=== PATIENT | female | born 1995 ===

== ENCOUNTER 2017-05-05 21:43 | Emergency (ER) | payer OTHER ==
[2017-05-05 21:45] VITALS: BMI 37.2
== END 2017-05-05 22:44 | disposition left against medical advice (07) ==
LOC: ED 21:43
DX: Z02.89 Encounter for other administrative examinations (principal); O26.90 Pregnancy related conditions, unspecified, unspecified trimester

== ENCOUNTER 2017-11-23 19:36 | Inpatient (IN) | payer MEDICAID, OTHER ==
[2017-11-23 19:56] VITALS: BMI 34.3
[2017-11-23] MEDS ORDERED: Morphine 4 mg/ml ISec IVP STA (20:53)
--- NOTE | 2017-11-23 20:56 | ED PDOC ---
Arrival/HPI - General Chief Complaint: Lower Extremity Problem/Injury Time Seen by Provider: 11/23/17 19:53 Historian: Patient - History of Present Illness Narrative History of Present Illness (Text): 11/23/17 20:54 22yo female with no pmhx who was bib EMS for right ankle pain s/p trauma this evening. States she missed 2stairs and fell, while carrying her child injuring her ankle. States unable to bear weight. Denies hitting her head, LOC, focal weakness, any other complaint. Past Medical History - Provider Review Nursing Documentation Reviewed: Yes - Past History Past History: No Previous - Infectious Disease Hx of Infectious Diseases: None - Tetanus Immunization Tetanus Immunization: Unknown - Past Medical History Past Medical History: No Previous - Psychiatric Hx Depression: No Hx Substance Use: No - Past Surgical History Past Surgical History: No Previous - Anesthesia Hx Anesthesia: No Hx Anesthesia Reactions: No Hx Malignant Hyperthermia: No - Suicidal Assessment Feels Threatened In Home Enviroment: No Family/Social History - Physician Review Nursing Documentation Reviewed: Yes Family/Social History: Unknown Family HX Smoking Status: Former Smoker Hx Alcohol Use: Yes Hx Substance Use: No Hx Substance Use Treatment: No Allergies/Home Meds Allergies/Adverse Reactions: Allergies No Known Allergies Allergy (Verified 07/14/17 12:28) Home Medications: Home Meds Medication Instructions Recorded Confirmed Vit No.126/Iron/Folic 1 tab PO DAILY 03/23/16 07/24/17 [Classic Tablet] Review of Systems - Physician Review All systems were reviewed & negative as marked: Yes - Review of Systems Constitutional: Normal Eyes: Normal ENT: Normal Respiratory: Normal Cardiovascular: Normal Gastrointestinal: Normal Genitourinary Female: Normal Musculoskeletal: Arthralgias (Right ankle) Skin: Normal Neurological: Normal Endocrine: Normal Hemo/Lymphatic: Normal Psychiatric: Normal Physical Exam Vital Signs Reviewed: Yes Vital Signs Temp Pulse Resp BP Pulse Ox 11/23/17 21:51 98.3 F 85 18 129/72 99 11/23/17 19:37 98.5 F 92 H 18 100 Temperature: Afebrile Blood Pressure: Normal Pulse: Regular Respiratory Rate: Normal Appearance: Positive for: Well-Appearing, Non-Toxic, Comfortable Pain Distress: None Mental Status: Positive for: Alert and Oriented X 3 - Systems Exam Head: Present: Atraumatic, Normocephalic Pupils: Present: PERRL Extroacular Muscles: Present: EOMI Conjunctiva: Present: Normal Mouth: Present: Moist Mucous Membranes Neck: Present: Normal Range of Motion Respiratory/Chest: Present: Clear to Auscultation, Good Air Exchange. No: Respiratory Distress, Accessory Muscle Use Cardiovascular: Present: Regular Rate and Rhythm, Normal S1, S2. No: Murmurs Abdomen: No: Tenderness, Distention, Peritoneal Signs Back: Present: Normal Inspection Upper Extremity: Present: Normal Inspection. No: Cyanosis, Edema Lower Extremity: Present: NORMAL PULSES, Tenderness (diffuse right ankle), Swelling (Right ankle worse on the lateral aspect), Deformity, Neurovascularly Intact. No: Edema, Normal ROM (Limited secondary to pain) Neurological: Present: GCS=15, CN II-XII Intact, Speech Normal Skin: Present: Warm, Dry, Normal Color. No: Rashes Psychiatric: Present: Alert, Oriented x 3, Normal Insight, Normal Concentration Medical Decision Making ED Course and Treatment: 11/24/17 00:56 Right ankle Bones/joints: There is a fracture of the distal fibula which is partially displaced. Fracture is also seen involving the distal tibia extending to the tibial plafond posteriorly and medially. No dislocation. Soft tissues: Marked soft tissue edema of the lateral ankle. IMPRESSION: Trimalleolar fracture. Marked edema of the lateral ankle. PT's pain was controlled in ED. Posterior and sugar tong splint was placed to mobilized fracture and ankle was kept elevated. She remain NVI. Case was MAYCO Louie and he states he will take pt to ED tomorrow. He requested ankle CT and it was ordered. Labs was ordered and wnl. Case was MAYCO Burger and pt was admitted to the Hospitalist. All result and plan was DW the pt and she agreed. EKG NSR @ 92bpm CXR NAD Right ankle As seen are oblique coronal, intra-articular fractures of the right distal tibia and fibula. At the tibial plafond, there is up to 3.5 mm of depression of the posterior malleolus fragment , with a gap at the articular surface measuring up to 3 mm in AP dimension. There is a 9 mm curvilinear intra-articular ossific fragment. There is an additional transverse fracture through the base of the medial malleolus. The distal fibular fracture is fragment anteroinferiorly with mild displacement. No dislocation. The talus is intact. No visualized hindfoot or midfoot fracture. No aggressive osseous lesion. IMPRESSION: This report is intended only for the use of the referring physician, and only in accordance with law, If you received this in error, call [phone] Page 2 of 2 Acute intra-articular fractures of the right distal tibia and fibula as described, with disruption of the tibial plafond. 11/24/17 01:03 - Lab Interpretations Lab Results: 11/23/17 20:45 11/23/17 20:45 Lab Results 11/23/17 21:00: Blood Type B POSITIVE, Antibody Screen Negative, BBK History Checked Patient has bt 11/23/17 20:45: Sodium 143, Potassium 3.9, Chloride 103, Carbon Dioxide 24, Anion Gap 19, BUN 16, Creatinine 0.9, Est GFR ( Amer) > 60, Est GFR (Non- Af Amer) > 60, Random Glucose 98, Calcium 9.0, Total Bilirubin 0.2, AST 35, ALT 49, Alkaline Phosphatase 86, Total Protein 8.0, Albumin 4.7, Globulin 3.4, Albumin/Globulin Ratio 1.4 11/23/17 20:45: PT 11.6, INR 1.02, APTT 29.6 11/23/17 20:45: WBC 11.3 H, RBC 4.89, Hgb 12.2, Hct 36.8, MCV 75.3 L, MCH 24.9 L , MCHC 33.2, RDW 14.5, Plt Count 357, MPV 9.8, Gran % 76.7 H, Lymph % (Auto) 17.7 L, [place] % (Auto) 4.4, Eos % (Auto) 1.0 L, Baso % (Auto) 0.2, Gran # 8.69 H , Lymph # (Auto) 2.0, [place] # (Auto) 0.5, Eos # (Auto) 0.1, Baso # (Auto) 0.02 - RAD Interpretation Radiology Orders: 11/23/17 19:56 ANKLE RIGHT 3 VIEWS ROUTINE [RAD] Stat 11/23/17 21:06 CHEST PORTABLE [RAD] Stat - Medication Orders Current Medication Orders: Acetaminophen (Tylenol 325mg Tab) 650 mg PO Q6H PRN PRN Reason: Fever >100.4 F Docusate Sodium (Colace) 100 mg PO BID JANICE Sodium Chloride (Sodium Chloride 0.9%) 1,000 mls @ 125 mls/hr IV .Q8H JANICE Last Admin: 11/23/17 22:32 Dose: 125 mls/hr eMAR Start Stop Document 11/23/17 22:32 MJ (Rec: 11/23/17 22:32 [id number] Intravenous Solution Start Date 11/23/17 Start Time 22:32 Ketorolac Tromethamine (Toradol) 15 mg IVP Q6H PRN PRN Reason: Pain, Mild (1-3) Morphine Sulfate (Morphine) 4 mg IVP Q4H PRN PRN Reason: Pain, severe (8-10) Morphine Sulfate (Morphine) 2 mg IVP Q4H PRN PRN Reason: Pain, moderate (4-7) Last Admin: 11/23/17 22:31 Dose: 2 mg MAR Pain Assessment Document 11/23/17 22:31 MJ (Rec: 11/23/17 22:32 [id number] Pain Reassessment Is this a pain reassessment? No Sleep Is patient sleeping during reassessment? No Presence of Pain Presence of Pain Yes Pain Scale Used Pain Scale Used Numeric Location Left, Right or Bilateral Right Pain Location Body Site Ankle Description Description Constant Intensity of Pain at present 6 Pain Behavior Moaning Alleviating Factors/Management Medication Techniques IVP Administration Document 11/23/17 22:31 MJ (Rec: 11/23/17 22:32 [id number] Charges for Administration # of IVP Administrations 1 Discontinued Medications Ketorolac Tromethamine (Toradol) 30 mg IM STAT STA Stop: 11/23/17 20:02 Last Admin: 11/23/17 20:11 Dose: 30 mg MAR Pain Assessment Document 11/23/17 20:11 EQ (Rec: 11/23/17 20:11 EQ [id number]) Pain Reassessment Is this a pain reassessment? No Sleep Is patient sleeping during reassessment? No Presence of Pain Presence of Pain Yes IM Administration Charges Document 11/23/17 20:11 EQ (Rec: 11/23/17 20:11 EQ [id number]) Charges for Administration # of IM Administrations 1 Morphine Sulfate (Morphine) 4 mg IVP STAT STA Stop: 11/23/17 20:54 Last Admin: 11/23/17 21:02 Dose: 4 mg MAR Pain Assessment Document 11/23/17 21:02 EQ (Rec: 11/23/17 21:02 EQ [facility]) Pain Reassessment Is this a pain reassessment? No Sleep Is patient sleeping during reassessment? No Presence of Pain Presence of Pain Yes Pain Scale Used Pain Scale Used Numeric Description Effects of Pain 7 IVP Administration Document 11/23/17 21:02 EQ (Rec: 11/23/17 21:02 EQ [facility]) Charges for Administration # of IVP Administrations 1 Disposition/Present on Arrival - Present on Arrival Any Indicators Present on Arrival: No History of DVT/PE: No History of Uncontrolled Diabetes: No Urinary Catheter: No History of Decub. Ulcer: No History Surgical Site Infection Following: None - Disposition Have Diagnosis and Disposition been Completed?: Yes Diagnosis: Trimalleolar fracture Disposition: HOSPITALIZED Disposition Time: 21:30 Patient Plan: Admission Condition: STABLE
[2017-11-23 21:02] LABS: ALB/GLOB RATIO 1.4 (1.1-1.8); ALBUMIN 4.7 g/dL (3.0-4.8); ALT/SGPT 49 U/L (7-56); AST/SGOT 35 U/L (14-36); BLOOD UREA NITROGEN 16 mg/dL (7-21); GFR AFRICAN-AMERICAN > 60; GFR NON-AFRICAN AMERICAN > 60
[2017-11-23 21:10] LABS: BASO # 0.02 K/mm3 (0.0-2.0); BASO % 0.2 % (0.0-3.0); EOS # 0.1 (0.0-0.7); GRAN # 8.69 (1.4-6.5); GRAN % 76.7 % (50.0-68.0); HEMOGLOBIN 12.2 g/dL (12.0-16.0); LYMPH % 17.7 % (22.0-35.0); MEAN CELL VOLUME 75.3 fl (80.0-105.0); MEAN CORPUSCULAR HEMOGLOBIN 24.9 pg (25.0-35.0); MEAN CORPUSCULAR HGB CONC 33.2 g/dl (31.0-37.0); MEAN PLATELET VOLUME 9.8 fl (7.0-11.0); MONO # 0.5 (0.1-0.6); MONO % 4.4 % (1.0-6.0); RBC 4.89 10^6/uL (3.5-6.1); RED CELL DISTRIBUTION WIDTH 14.5 % (11.5-14.5); WHITE BLOOD COUNT 11.3 10^3/ul (4.5-11.0)
[2017-11-23 21:11] LABS: INR 1.02; PROTHROMBIN TIME 11.6 SECONDS (9.4-12.5)
[2017-11-23 21:14] LABS: PARTIAL THROMBOPLASTIN TIME 29.6 Seconds (25.1-36.5)
[2017-11-23] MEDS: Morphine 2 mg/ml ISec IVP PRN (22:31)
[2017-11-23] MEDS: Sodium Chloride 0.9% 1,000 ML IV SCH (22:32)
--- NOTE | 2017-11-24 00:30 | CP.PCM.HP ---
History of Present Illness - History of Present Illness History of Present Illness: HISTORY & PHYSICAL NOTE FOR HOSPITALIST TEAM Ismael Martinez PGY1 CC: R ankle pain s/p mechanical fall. HPI: Pt is a 22 y/o F with no significant pmhx presented to ED with complaints of severe R ankle pain after falling at home. Pt was holding her baby while walking down stairs at home when she missed a step and injured her ankle. She does not remember details as to which way the ankle had turned. She landed on her stomach and remained on the floor until EMS. She denies LOC during the event, and reports her child was unharmed. She reports her pain was 10/10 immediately after she fell, but decreased to 4/10 after analgesic administration in ER. She denies numbness, tingling, or loss of sensation on the extremity. She is able to move her R ankle, although its very painful. She reports cervical cerclage placement x 3 for cervical incompetence, and reports good recovery from anesthesia. Denies any history of bleeding disorders. Friend present with pt denies pt snores when sleeping. Pt denies fevers, chills, headaches, dizziness, nausea, vomiting, constipation diarrhea, numbness tingling , dysuria. PMhx: denies Surghx: Cervical cerclage- cervical incompetence Allergies: NKDA Socialhx: Former smoker, 2pack/week x 1 year. Denies drugs/alcohol Famhx: Denies Meds: Denies Present on Admission - Present on Admission Any Indicators Present on Admission: No Review of Systems - Review of Systems All systems: reviewed and no additional remarkable complaints except (as per HPI , otherwise negative) Past Patient History - Infectious Disease Hx of Infectious Diseases: None - Tetanus Immunizations Tetanus Immunization: Unknown - Past Social History Smoking Status: Light Smoker < 10 Cigarettes Daily - CARDIAC Hx Cardiac Disorders: No - PULMONARY Hx Respiratory Disorders: No - NEUROLOGICAL Hx Neurological Disorder: No - HEENT Hx HEENT Problems: No - RENAL Hx Chronic Kidney Disease: No - ENDOCRINE/METABOLIC Hx Endocrine Disorders: No - HEMATOLOGICAL/ONCOLOGICAL Hx Blood Disorders: No - INTEGUMENTARY Hx Dermatological Problems: No - MUSCULOSKELETAL/RHEUMATOLOGICAL Hx Falls: No - GASTROINTESTINAL Hx Gastrointestinal Disorders: No - GENITOURINARY/GYNECOLOGICAL Hx Genitourinary Disorders: No - PSYCHIATRIC Hx Depression: No Hx Substance Use: No - SURGICAL HISTORY Hx Surgeries: No - ANESTHESIA Hx Anesthesia: No Hx Anesthesia Reactions: No Hx Malignant Hyperthermia: No Meds Allergies/Adverse Reactions: Allergies Allergy/AdvReac Type Severity Reaction Status Date / Time No Known Allergies Allergy Verified 07/14/17 12:28 Physical Exam - Constitutional Appears: Well, Non-toxic, No Acute Distress - Head Exam Head Exam: NORMAL INSPECTION - Eye Exam Eye Exam: EOMI, Normal appearance - ENT Exam ENT Exam: Mucous Membranes Moist, Normal Exam - Respiratory Exam Respiratory Exam: Clear to Auscultation Bilateral, NORMAL BREATHING PATTERN - Cardiovascular Exam Cardiovascular Exam: Tachycardia, REGULAR RHYTHM - GI/Abdominal Exam GI & Abdominal Exam: Normal Bowel Sounds, Soft. absent: Tenderness - Extremities Exam Extremities exam: Positive for: normal capillary refill Additional comments: R ankle dressing in place Sensation intact along distal phalanges Pt can move phalanges Normal capillary refill - Neurological Exam Neurological exam: Alert, CN II-XII Intact - Psychiatric Exam Psychiatric exam: Normal Affect, Normal Mood - Skin Skin Exam: Dry, Intact, Warm Results - Vital Signs Recent Vital Signs: Last Vital Signs Temp 98.3 F 11/23/17 22:54 Pulse 92 H 11/23/17 22:54 Resp 20 11/23/17 22:54 BP 128/81 11/23/17 22:54 Pulse Ox 98 11/23/17 22:53 - Labs Result Diagrams: 11/23/17 20:45 11/23/17 20:45 Assessment & Plan - Assessment and Plan (Free Text) Assessment: 22 y/o F w/ no significant pmhx admitted for trimalleolar fracture s/p mechanical fall. Pt admitted for pre-op evaluation. Plan: R trimalleolar fracture - X-Ray R ankle: Trimalleolar fracture. Marked edema of the lateral ankle - Orthopedic surgery consult: Mastromonaco. Scheduled for OR today - DVT prophylaxis held, start 4 hours after surgery - Previous hx of cervical cerclage surgeries under anesthesia. Reported normal recovery post procedures - morphine 4mg IVP q4h prn for severe pain. morphine 2mg q4h IVP prn for moderate pain. Toradol 15mg IVP q6h prn. Leukocytosis - pt afebrile. Doesnt meet SIRS criteria - likely due to stress demargination Diet/DVT ppx/GI ppx: NPO past midnight/hold/protonix Case discussed with and reviewed by attending physician, Dr. Burger - Date & Time Date: 11/24/17 Time: 01:00
[2017-11-24] MEDS: Morphine 4 mg/ml ISec IVP PRN ×2 (04:56→23:51)
[2017-11-24] MEDS: Sodium Chloride 0.9% 1,000 ML IV SCH ×3 (06:52→23:52)
[2017-11-24] MEDS: Morphine 2 mg/ml ISec IVP PRN ×2 (07:28→16:32)
[2017-11-24 07:58] LABS: BASO # 0.02 K/mm3 (0.0-2.0); BASO % 0.2 % (0.0-3.0); EOS # 0.1 (0.0-0.7); EOS % 1.2 % (1.5-5.0); GRAN # 6.02 (1.4-6.5); GRAN % 66.1 % (50.0-68.0); LYMPH # 2.3 (1.2-3.4); LYMPH % 25.7 % (22.0-35.0); MEAN CELL VOLUME 75.6 fl (80.0-105.0); MEAN CORPUSCULAR HEMOGLOBIN 24.6 pg (25.0-35.0); MEAN CORPUSCULAR HGB CONC 32.6 g/dl (31.0-37.0); MEAN PLATELET VOLUME 9.7 fl (7.0-11.0); MONO # 0.6 (0.1-0.6); MONO % 6.8 % (1.0-6.0); RBC 4.14 10^6/uL (3.5-6.1); RED CELL DISTRIBUTION WIDTH 14.4 % (11.5-14.5); WHITE BLOOD COUNT 9.1 10^3/ul (4.5-11.0)
[2017-11-24 08:01] LABS: ALB/GLOB RATIO 1.3 (1.1-1.8); ALBUMIN 3.6 g/dL (3.0-4.8); ALT/SGPT 36 U/L (7-56); AST/SGOT 26 U/L (14-36); BLOOD UREA NITROGEN 14 mg/dL (7-21); CALCIUM 8.4 mg/dL (8.4-10.5); GFR AFRICAN-AMERICAN > 60; GFR NON-AFRICAN AMERICAN > 60
--- NOTE | 2017-11-24 08:04 | RAD ---
Date of service: 11/23/2017 HISTORY: admission COMPARISON: No prior. FINDINGS: LUNGS: No active pulmonary disease. PLEURA: No significant pleural effusion identified, no pneumothorax apparent. CARDIOVASCULAR: Normal. OSSEOUS STRUCTURES: No significant abnormalities. VISUALIZED UPPER ABDOMEN: Normal. OTHER FINDINGS: None. IMPRESSION: No active disease.
[2017-11-24 08:06] LABS: HEMOGLOBIN 10.2 g/dL (12.0-16.0)
--- NOTE | 2017-11-24 08:12 | RAD ---
Date of service: 11/23/2017 PROCEDURE: Right Ankle Radiographs. HISTORY: ankle pain COMPARISON: None FINDINGS: BONES: Displaced trimalleolar fracture. Oblique fracture of the distal fibula. Displaced transverse fracture of the medial malleolus. Minimally displaced vertical fracture of the posterior malleolus JOINTS: Normal. No osteoarthritis. Ankle mortise maintained. Talar dome intact SOFT TISSUES: Normal. OTHER FINDINGS: None. IMPRESSION: Displaced trimalleolar fracture. Oblique fracture of the distal fibula. Displaced transverse fracture of the medial malleolus. Minimally displaced vertical fracture of the posterior malleolus
[2017-11-24 08:19] LABS: URINE BILIRUBIN NEGATIVE (NEGATIVE); URINE BLOOD NEGATIVE (NEGATIVE); URINE GLUCOSE (UA) NEGATIVE (NEGATIVE); URINE LEUKOCYTE ESTERASE MODERATE Leu/uL (NEGATIVE); URINE PROTEIN NEGATIVE mg/dL (<30 mg/dL); URINE UROBILINOGEN 0.2 E.U./dL (<1 E.U./dL)
[2017-11-24 08:21] LABS: URINE APPEARANCE SL CLOUDY (CLEAR); URINE COLOR YELLOW (YELLOW)
[2017-11-24 08:32] LABS: URINE BACTERIA SMALL (NEG); URINE RBC NEGATIVE /hpf (0-2); URINE WBC 25 - 30 /hpf (0-6)
--- NOTE | 2017-11-24 09:06 | CARD ---
APPROVED REPORT Date of service: 11/23/2017 EKG Measurement Heart [id number] <Conclusion> Normal sinus rhythm Normal ECG
--- NOTE | 2017-11-24 09:19 | CT ---
Date of service: 11/23/2017 PROCEDURE: CT of the right ankle HISTORY: ankle fracture COMPARISON: TECHNIQUE: Radiation dose: Total exam DLP = 361 mGy-cm. This CT exam was performed using one or more of the following dose reduction techniques: Automated exposure control, adjustment of the mA and/or kV according to patient size, and/or use of iterative reconstruction technique. FINDINGS: There is a trimalleolar fracture. Vertical fractures can be seen in the coronal plane extending through the posterior 3rd of the tibia as well as the fibula. There is a displaced transverse fracture of the medial malleolus. There is minimal lateral subluxation of the talus relative to the tibia. The talar dome is intact. There is a small curvilinear bony fragment in the joint space measuring 9 mm in length and 1 mm in diameter. The report concurs with the preliminary [facility] report IMPRESSION: Trimalleolar fracture
[2017-11-24] MEDS ORDERED: Vancomycin 1 g Inj ONE ×2 (09:49→13:04)
[2017-11-24] MEDS ORDERED: Bupivacaine 0.5% Inj(30mL) ONE ×2 (09:49→13:41)
[2017-11-24] MEDS ORDERED: Propofol 10 mg/ml Inj (20 ML) ONE (09:52)
[2017-11-24] MEDS ORDERED: Midazolam 2 MG/2 ML VIAL ONE (09:52)
[2017-11-24] MEDS ORDERED: Rocuronium 10 mg/ml (5 ml) ONE (09:54)
--- NOTE | 2017-11-24 13:30 | RAD ---
Date of service: 11/24/2017 PROCEDURE: Fluoroscopy up to 1 hour HISTORY: ORIF RT ANKLE COMPARISON: TECHNIQUE: 81.3 seconds of fluoro time were used. 2.59 mGy cumulative dose. 3 images were obtained FINDINGS: There has been internal fixation of the posterior malleolar and lateral malleolar fracture. There is normal alignment of the medial malleolar fracture. There is no screw through this fracture. IMPRESSION: As above
[2017-11-24] MEDS ORDERED: HYDROmorphone 0.5 mg/0.5 ml ISec IVP PRN (14:15)
--- NOTE | 2017-11-24 14:21 | PCM.ANESB2 ---
Popliteal Nerve Block - Popliteal Nerve Block Date of Procedure: 11/24/17 Anesthesiologist: Leo Pre-Procedure Diagnosis: Ankle ORIF Post-Procedure Diagnosis: same Procedure Performed: Popliteal Nerve Block Right - Procedure Popliteal Nerve Block: This procedure was explained to the patient that it is for post-operative pain management. Consent was obtained after a thorough discussion with the patient regarding the benefits and possible complications of local anesthetic block of the sciatic nerve at the popliteal level. The patient was brought to the operating room and standard monitors are applied. Time-out was held with the circulating nurse to confirm the correct surgery and the appropriate block. After applying oxygen by nasal cannula and administering IV Sedation, patient's operative leg was gently raised and supported and the groove in between the biceps femoris and vastus lateralis muscles was carefully palpated. The skin approximately 8cm above the popliteal crease was then marked. The ultrasound transducer was then applied to the posterior thigh approximately 8cm above the popliteal crease in the transverse plane and the sciatic nerve before its division was visualized lateral to the popliteal artery and in between the bicep femoris and semimembranosus/semitendinosus muscles. After identification, the lateral portion of the thigh was prepped with Betadine solution three times and Lidocaine 1% was injected subcutaneously for topical anesthesia. At this point, a # 21 gauge Stimuplex insulated 4 inch needle was inserted into pre-marked area and advanced in a perpendicular direction. The needle was inserted above the ultrasound transducer in-plane towards the sciatic nerve in a [id number] direction. Needle advancement was performed carefully under direct ultrasound visualization. Nerve stimulator was used and dorsiflexion of the __right___ foot was elicited at a current of ___0.4__ MA. After repeated negative aspiration, ___5__cc of __0.25___ % ____Bupivacaine was injected and this was flowed with __15____ cc of __0.25____% __Bupivacaine ____. Under ultrasound guidance the local anesthetics were observed surrounding sciatic nerve . The needle was removed intact and sterile dressing was applied. The patient tolerated the popliteal nerve block well with stable vital signs and was subsequently prepared for the surgery.
[2017-11-24] MEDS ORDERED: HYDROmorphone 0.5 mg/0.5 ml ISec ONE (14:28)
[2017-11-24] MEDS ORDERED: HYDROmorphone 0.5 mg/0.5 ml ISec IVP ONE (14:30)
--- NOTE | 2017-11-24 15:32 | RAD ---
Date of service: 11/24/2017 PROCEDURE: Right Ankle Radiographs. HISTORY: post op rt ankle fx COMPARISON: Pre reduction films 11/23/2017 FINDINGS: BONES: There has been internal fixation of the lateral and posterior malleolar fracture. There is anatomic alignment of the medial malleolar fracture without surgical hardware. The foot is in a cast JOINTS: Normal. No osteoarthritis. Ankle mortise maintained. Talar dome intact SOFT TISSUES: Normal. OTHER FINDINGS: None. IMPRESSION: There has been internal fixation of the lateral and posterior malleolar fracture. There is anatomic alignment of the medial malleolar fracture without surgical hardware. The foot is in a cast
[2017-11-24 16:24] LABS: BASO # 0.02 K/mm3 (0.0-2.0); BASO % 0.2 % (0.0-3.0); EOS % 0.2 % (1.5-5.0); GRAN # 10.51 (1.4-6.5); GRAN % 85.1 % (50.0-68.0); HEMOGLOBIN 10.3 g/dL (12.0-16.0); LYMPH % 7.9 % (22.0-35.0); MEAN CELL VOLUME 75.5 fl (80.0-105.0); MEAN CORPUSCULAR HEMOGLOBIN 24.2 pg (25.0-35.0); MEAN CORPUSCULAR HGB CONC 32.1 g/dl (31.0-37.0); MEAN PLATELET VOLUME 8.7 fl (7.0-11.0); MONO # 0.8 (0.1-0.6); MONO % 6.6 % (1.0-6.0); RBC 4.25 10^6/uL (3.5-6.1); RED CELL DISTRIBUTION WIDTH 14.4 % (11.5-14.5); WHITE BLOOD COUNT 12.3 10^3/ul (4.5-11.0)
[2017-11-24] MEDS ORDERED: ceFAZolin IV 2 gm in Dextrose 2 GM/50 ML BAG IVPB ONE (18:00)
[2017-11-25 09:12] LABS: BASO # 0.01 K/mm3 (0.0-2.0); BASO % 0.1 % (0.0-3.0); EOS % 0.3 % (1.5-5.0); GRAN # 7.3 (1.4-6.5); GRAN % 75.7 % (50.0-68.0); HEMOGLOBIN 9.4 g/dL (12.0-16.0); LYMPH # 1.3 (1.2-3.4); LYMPH % 13.3 % (22.0-35.0); MEAN CELL VOLUME 75.8 fl (80.0-105.0); MEAN CORPUSCULAR HEMOGLOBIN 23.9 pg (25.0-35.0); MEAN CORPUSCULAR HGB CONC 31.5 g/dl (31.0-37.0); MEAN PLATELET VOLUME 9.7 fl (7.0-11.0); MONO % 10.6 % (1.0-6.0); RBC 3.93 10^6/uL (3.5-6.1); RED CELL DISTRIBUTION WIDTH 14.2 % (11.5-14.5); WHITE BLOOD COUNT 9.6 10^3/ul (4.5-11.0)
[2017-11-25 09:18] LABS: ALB/GLOB RATIO 1.2 (1.1-1.8); ALBUMIN 3.5 g/dL (3.0-4.8); ALT/SGPT 34 U/L (7-56); AST/SGOT 44 U/L (14-36); BLOOD UREA NITROGEN 6 mg/dL (7-21); CALCIUM 8.3 mg/dL (8.4-10.5); GFR AFRICAN-AMERICAN > 60; GFR NON-AFRICAN AMERICAN > 60
[2017-11-25] MEDS: Morphine 2 mg/ml ISec IVP PRN ×2 (10:07→17:28)
[2017-11-25] MEDS: Enoxaparin 30 mg Syringe SC SCH (10:10)
[2017-11-25] MEDS: Sodium Chloride 0.9% 1,000 ML IV SCH (12:52)
[2017-11-25 15:51] LABS: BASO # 0.01 K/mm3 (0.0-2.0); BASO % 0.1 % (0.0-3.0); EOS % 0.5 % (1.5-5.0); GRAN # 5.44 (1.4-6.5); GRAN % 70.2 % (50.0-68.0); HEMOGLOBIN 9.5 g/dL (12.0-16.0); LYMPH # 1.3 (1.2-3.4); LYMPH % 17.3 % (22.0-35.0); MEAN CELL VOLUME 75.8 fl (80.0-105.0); MEAN CORPUSCULAR HEMOGLOBIN 24.4 pg (25.0-35.0); MEAN CORPUSCULAR HGB CONC 32.2 g/dl (31.0-37.0); MEAN PLATELET VOLUME 9.5 fl (7.0-11.0); MONO # 0.9 (0.1-0.6); MONO % 11.9 % (1.0-6.0); RBC 3.89 10^6/uL (3.5-6.1); RED CELL DISTRIBUTION WIDTH 14.3 % (11.5-14.5); WHITE BLOOD COUNT 7.8 10^3/ul (4.5-11.0)
--- NOTE | 2017-11-25 16:16 | CP.PCM.PN ---
<Ana Beasley - Last Filed: 11/25/17 16:13> Subjective - Date & Time of Evaluation Date of Evaluation: 11/25/17 Time of Evaluation: 16:13 - Subjective Subjective: Ana Beasley PGY1 Progress Note for Lynn Rico Ms. Escobedo was examined at bedside this morning. She reported some dull pain in her ankle. She denied any fever, shortness of breath, chest pain, abdominal pain, nausea, vomiting, or dysuria. Pt denied any numbness of tingling. Objective - Vital Signs/Intake and Output Vital Signs (last 24 hours): Temp Pulse Resp BP Pulse Ox 98.2 F 87 18 122/71 97 11/25/17 15:11 11/25/17 15:11 11/25/17 15:11 11/25/17 15:11 11/25/17 15:11 Intake and Output: 11/25/17 11/25/17 06:59 18:59 Intake Total 1680 Balance 1680 - Medications Medications: Current Medications Acetaminophen (Tylenol 325mg Tab) 650 mg PO Q6H PRN PRN Reason: Fever >100.4 F Last Admin: 11/25/17 11:16 Dose: 650 mg Docusate Sodium (Colace) 100 mg PO BID [facility] Last Admin: 11/25/17 10:06 Dose: 100 mg Enoxaparin Sodium (Lovenox) 30 mg SC DAILY [facility] PRN Reason: Protocol Last Admin: 11/25/17 10:10 Dose: 30 mg Sodium Chloride (Sodium Chloride 0.9%) 1,000 mls @ 80 mls/hr IV .[id number] [facility] Last Admin: 11/25/17 12:52 Dose: 80 mls/hr Ketorolac Tromethamine (Toradol) 15 mg IVP Q6H PRN PRN Reason: Pain, Mild (1-3) Last Admin: 11/25/17 11:15 Dose: 15 mg Morphine Sulfate (Morphine) 4 mg IVP Q4H PRN PRN Reason: Pain, severe (8-10) Last Admin: 11/24/17 23:51 Dose: 4 mg Morphine Sulfate (Morphine) 2 mg IVP Q4H PRN PRN Reason: Pain, moderate (4-7) Last Admin: 11/25/17 10:07 Dose: 2 mg Pantoprazole Sodium (Protonix Inj) 40 mg IVP DAILY [facility] Last Admin: 11/25/17 10:06 Dose: 40 mg - Labs Labs: 11/25/17 15:43 11/25/17 08:40 PT 11.6 SECONDS (9.4-12.5) 11/23/17 20:45 INR 1.02 11/23/17 20:45 APTT 29.6 Seconds (25.1-36.5) 11/23/17 20:45 - Constitutional Appears: Well, No Acute Distress - Head Exam Head Exam: ATRAUMATIC, NORMOCEPHALIC - Eye Exam Eye Exam: EOMI, Normal appearance Pupil Exam: NORMAL ACCOMODATION - ENT Exam ENT Exam: Mucous Membranes Moist - Respiratory Exam Respiratory Exam: Clear to Ausculation Bilateral, NORMAL BREATHING PATTERN. absent: Rhonchi, Wheezes, Stridor - Cardiovascular Exam Cardiovascular Exam: REGULAR RHYTHM, +S1, +S2 - GI/Abdominal Exam GI & Abdominal Exam: Soft, Normal Bowel Sounds. absent: Distended, Firm, Tenderness - Extremities Exam Extremities Exam: Normal Capillary Refill. absent: Pedal Edema Additional comments: Right lower extremity in cast - Neurological Exam Neurological Exam: Alert, Awake, Oriented x3 Additional comments: b/l phalanges sensation equal and intact - Psychiatric Exam Psychiatric exam: Normal Affect, Normal Mood - Skin Skin Exam: Normal Color Assessment and Plan - Assessment and Plan (Free Text) Assessment: 22 y/o F w/ no significant pmhx admitted for trimalleolar fracture s/p mechanical fall. POD #1. Plan: R trimalleolar fracture - Xray Ankle: Trimalleolar fracture. Marked edema of the lateral ankle - POD #1: s/p fixation, Dr. Louie. - minimal vac output this morning - Lovenox 30mg for DVT ppx, as per Dr. Louie - Ancef 2g/50mg dextrose completed 11/24 - Previous hx of cervical cerclage surgeries under anesthesia. Reported normal recovery post procedures - morphine 4mg IVP q4h prn for severe pain. morphine 2mg q4h IVP prn for moderate pain. Toradol 15mg IVP q6h prn. - advanced to heart healthy diet - Ortho consulted, recs appreciated Leukocytosis - resolved - pt afebrile - WBC 7.8 from 12.3 - likely etiology: secondary to stress demargination DVT ppx/GI ppx: lovenox 30/ protonix Case discussed with and reviewed by Dr. Rico <Lynn Rico R - Last Filed: 11/25/17 16:56> Objective - Vital Signs/Intake and Output Vital Signs (last 24 hours): Temp Pulse Resp BP Pulse Ox 98.2 F 87 18 122/71 97 11/25/17 15:11 11/25/17 15:11 11/25/17 15:11 11/25/17 15:11 11/25/17 15:11 Intake and Output: 11/25/17 11/25/17 06:59 18:59 Intake Total 1680 Balance 1680 - Medications Medications: Current Medications Acetaminophen (Tylenol 325mg Tab) 650 mg PO Q6H PRN PRN Reason: Fever >100.4 F Last Admin: 11/25/17 11:16 Dose: 650 mg Docusate Sodium (Colace) 100 mg PO BID [facility] Last Admin: 11/25/17 10:06 Dose: 100 mg Enoxaparin Sodium (Lovenox) 30 mg SC DAILY [facility] PRN Reason: Protocol Last Admin: 11/25/17 10:10 Dose: 30 mg Sodium Chloride (Sodium Chloride 0.9%) 1,000 mls @ 80 mls/hr IV .[id number] [facility] Last Admin: 11/25/17 12:52 Dose: 80 mls/hr Ketorolac Tromethamine (Toradol) 15 mg IVP Q6H PRN PRN Reason: Pain, Mild (1-3) Last Admin: 11/25/17 11:15 Dose: 15 mg Morphine Sulfate (Morphine) 4 mg IVP Q4H PRN PRN Reason: Pain, severe (8-10) Last Admin: 11/24/17 23:51 Dose: 4 mg Morphine Sulfate (Morphine) 2 mg IVP Q4H PRN PRN Reason: Pain, moderate (4-7) Last Admin: 11/25/17 10:07 Dose: 2 mg Pantoprazole Sodium (Protonix Inj) 40 mg IVP DAILY [facility] Last Admin: 11/25/17 10:06 Dose: 40 mg - Labs Labs: 11/25/17 15:43 11/25/17 08:40 PT 11.6 SECONDS (9.4-12.5) 11/23/17 20:45 INR 1.02 11/23/17 20:45 APTT 29.6 Seconds (25.1-36.5) 11/23/17 20:45 Attending/Attestation - Attestation I have personally seen and examined this patient.: Yes I have fully participated in the care of the patient.: Yes I have reviewed all pertinent clinical information, including history, physical exam and plan: Yes Notes (Text): Patient seen and examined by me at 8:50AM with resident. Case including HPI, physical exam, and assessment and plan discussed with resident. Agree with above with following additions/corrections. Patient is a 22-year-old female with no significant past medical history that presented to the emergency room with right ankle pain after mechanical fall at home. Patient states that she missed 2 steps going down to the basement on concrete and fell. Patient is status post ORIF of right ankle. She states that her pain is an 8 out of 10 which improves to a 6 out of 10 with pain medications. Pain is sharp when it comes. Pain radiates into the calf. Movement makes it worse. She denies any chest pain or palpitations. No nausea, vomiting, or abdominal pain. No fevers or chills. No headaches or dizziness. No dysuria. Patient is having flatus. Patient is tolerating diet. Physical exam: Gen: Awake and alert sitting up in bed in no acute distress HEENT: Normocephalic atraumatic. Extraocular muscles intact, pupils equal reactive. Oropharynx is pink and moist, no pharyngeal erythema or exudate appreciated. Neck is supple. Cardiovascular:Regular rhythm. Normal S1 and S2. No murmurs, rubs, or gallops appreciated Pulmonary: Normal respiratory effort. No rhonchi, wheezing, or rales appreciated. Gastrointestinal: Soft, nontender, nondistended, positive bowel sounds all 4 quadrants, no guarding. Musculoskeletal: Moves all extremities, decreased range of motion right lower extremity. Right lower extremity dressing clean, dry, intact; wound VAC in place Central nervous system: AAO x 3. CN 2-12 grossly intact Dermatologic: Skin warm and dry Assessment and plan: Patient is a 22-year-old female with no significant past medical history that presented to the emergency room with right ankle pain after mechanical fall at home. 1. Right trimalleolar fracture status post mechanical fall. Right ankle x-ray per radiologist showed displaced trimalleolar fracture, oblique fracture distal fibula, displaced transverse fracture of the medial malleolus, minimally displaced vertical fracture of the posterior malleolus. CT of the right lower extremity per radiologist showed trimalleolar fracture. Status post ORIF, postop day #1. Would VAC in place. Status post treatment with Ancef. Continue pain management. Physical therapy eval and treat. Orthopedic surgeon following, recommendations appreciated 2. Leukocytosis. Resolved. Likely reactive. COntinue to monitor 3. Acute on chronic anemia secondary to acute blood loss from surgery. Patient recently with menstrual period. Is unsure of history of anemia. Will need outpatient work up and follow up with a primary care doctor 4. DVT prophylaxis. Lovenox 30 mg subcutaneous daily per orthopedic Case was discussed in detail with the patient regarding current diagnosis and treatment plan Patient should be set up with [facility] for follow-up on discharge.
--- NOTE | 2017-11-26 07:29 | OP ---
Copied To: Bg Louie DO Attending MD: Bg Louie DO PROCEDURE DATE: 11/24/2017 The patient is a 22-year-old female. PREOPERATIVE DIAGNOSES: Fracture dislocation of the right ankle trimalleolar with a short oblique fractured distal fibula comminuted, a large posterior malleolar fragment encompassing 40% of the articular surface and a medial malleolar fracture at the level of the profound. POSTOPERATIVE DIAGNOSES: Fracture dislocation of the right ankle trimalleolar with a short oblique fractured distal fibula comminuted, a large posterior malleolar fragment encompassing 40% of the articular surface and a medial malleolar fracture at the level of the profound. PROCEDURE: Open reduction and internal fixation in a prone position with a posterolateral incision for the right ankle fracture allowing access to the posterior malleolus and the fibular fracture.internal fixation of thr poaterior malleolus with3 screws ,plating of the fibula with a lag screw. the medial malleolus was stabilized with the short leg cast DESCRIPTION OF PROCEDURE: Summary as follows: The patient was taken to the OR. Right ankle prepped and draped in sterile fashion, antibiotics given preop in the OR without a tourniquet, because the patient has a large frame. In a prone position, we made a posterolateral incision for the calcaneus at proximally first 5 inches. Deep knife was used to go through the subcutaneous tissue and the interval between the flexor hallucis longus and the peroneus were made to expose the fracture of the distal tibia, which was difficult to reduce, because the dislocation was occurring causing it to not be reduced and made the reduction difficult while we held it. After we got control of the dislocation by reducing it manually, we held the fracture reduced with some K-wires. When it was in good position, we put three screws in the distal fragment in triangle fashion, two cannulated and one fully threaded with a washer to hold it reduced. It was approximately about a 1 mm step off, we allowed that because of such a difficult reduction and moderate tension in this area. Then, we dissected underneath the peroneals, reduced the comminuted fibular fracture, which also was difficult to reduce because of its instability. We were able to get a lag screw from posterior to anterior with 18 mm screw and then put a 8 holed one-third tubular plate along the posterolateral portion of the fibula securing it distally with three cancellous screws and proximally three cortical screws. The patient showed good reduction on the x-ray. The wound was irrigated with normal saline and then we put 2 g of powered vancomycin into the depth of the wound, closed in layers starting with 0 Vicryl to deep layer to cover the plate and fascial closure, 2-0 Vicryl to the subcutaneous tissue, and skin with a combination of 2-0 nylon and melissa. Because of the swelling of this part of body, we put her in a VAC machine, wound VAC and keep it on for at least 3 to 4 days. No tourniquet was utilized. We put the patient in posterior splint and she is going to have a popliteal block for postop pain. Bg Louie DO MTDSharona
--- NOTE | 2017-11-26 07:32 | CON ---
Copied To: Bg Louie DO Attending MD: Bg Louie DO DATE: 11/24/2017 ORTHOPEDIC REPORT HISTORY OF PRESENT ILLNESS: The patient came in through the ER on 11/23/2017 with a displaced trimalleolar fracture of the right ankle with a large posterior malleolus fracture, displaced. Lateral malleolus and unstable medial malleolar fracture. She did this when she slipped and fell carrying one of her babies and the leg inverted, causing damage to the right ankle. I educated the patient with the pros and cons of both conservative and operative treatments. She would like to get the surgery to decrease the chance of arthritis, decrease the chance of deformity and instability, knowing that there is a complication of infection, reaction to anesthesia, hardware failure, and possibility of a repeat surgery. If it is too strong, we will have to put external fixator on as opposed to plates and screws. I will do the surgery today after she gets the ECG test and then she will have to be nonweightbearing for 6 to 8 weeks and followed closely in the office. FINAL DIAGNOSIS: Displaced trimalleolar fracture of right ankle. The patient is 22-year-old, does not work. She is a [id number] with 3 children. Bg Louie DO MTDSharona
[2017-11-26 08:20] LABS: BASO # 0.02 K/mm3 (0.0-2.0); BASO % 0.3 % (0.0-3.0); EOS # 0.1 (0.0-0.7); EOS % 0.8 % (1.5-5.0); GRAN # 5.6 (1.4-6.5); GRAN % 72.6 % (50.0-68.0); HEMOGLOBIN 9.4 g/dL (12.0-16.0); LYMPH # 1.3 (1.2-3.4); LYMPH % 16.8 % (22.0-35.0); MEAN CELL VOLUME 75.2 fl (80.0-105.0); MEAN CORPUSCULAR HEMOGLOBIN 24.3 pg (25.0-35.0); MEAN CORPUSCULAR HGB CONC 32.3 g/dl (31.0-37.0); MEAN PLATELET VOLUME 9.3 fl (7.0-11.0); MONO # 0.7 (0.1-0.6); MONO % 9.5 % (1.0-6.0); RBC 3.87 10^6/uL (3.5-6.1); RED CELL DISTRIBUTION WIDTH 14.2 % (11.5-14.5); WHITE BLOOD COUNT 7.7 10^3/ul (4.5-11.0)
[2017-11-26 08:33] LABS: ALB/GLOB RATIO 1.1 (1.1-1.8); ALBUMIN 3.4 g/dL (3.0-4.8); ALT/SGPT 81 U/L (7-56); AST/SGOT 69 U/L (14-36); BLOOD UREA NITROGEN 7 mg/dL (7-21); CALCIUM 8.4 mg/dL (8.4-10.5); GFR AFRICAN-AMERICAN > 60; GFR NON-AFRICAN AMERICAN > 60
[2017-11-26] MEDS: Pantoprazole 40 mg EC Tab PO SCH (08:34)
--- NOTE | 2017-11-26 08:35 | PN ---
Copied To: Bg Louie DO Attending MD: Bg Louie DO DATE: 11/25/2017 POSTOPERATIVE REPORT A 22-year-old female underwent ORIF of a severely displaced unstable fracture, distal right ankle, trimalleolar type that was unstable and was dislocating posteriorly. Because that her fracture was so unstable, we had to go through the posterior approach to reduce the posterior malleolar fragment and that the same incision reduced the fibular fracture. This posterior malleolus was fixed with three screws and the malleolus fixed with a one-third tibial plate, medial malleolus came back in a good position where we do not have to stabilize it, but I told her if the fracture bruise do not heal, we have to go back in when all the swelling is down. This way, we did not need to make a second incision throughout the surgery. The fracture initially had occurred on 11/23/2017, we operated on the 11/24/2017 and we have her VAC on her, today's date is 11/25/2017 to help maintain less swelling and decreased hematoma formation. We will remove the VAC probably by Sunday and check the wound, right now she is in a posterior gutter splint and she moves her toes, has no complaints of undue pain. We will get her up out of bed in a chair with leg elevated. Hopefully, she could go home with crutches, ambulation, nonweightbearing after the VAC is removed to check the dressing.she was told of the possible complications ofinfection ,arthditis ,hard balderas failure which may need surgery in the future. Bg Louie DO DORON
[2017-11-26 09:51] LABS: IRON 20 ug/dL (45-180)
[2017-11-26] MEDS: Enoxaparin 30 mg Syringe SC SCH (09:56)
[2017-11-26] MEDS: Morphine 2 mg/ml ISec IVP PRN (09:57)
[2017-11-26 10:00] LABS: % IRON SATURATION 6 % (20-55); TOTAL IRON BINDING CAPACITY 316 ug/dL (265-497)
--- NOTE | 2017-11-26 11:34 | PN ---
Copied To: Bg Louie DO Attending MD: Bg Louie DO DATE: 11/26/2017 SUBJECTIVE: She underwent prolonged surgery on 11/24/2017 for her unstable comminuted fracture dislocation trimalleolar of the right ankle. Because of a large posterior malleolar fracture, we had to go through a posterior incision and we stabilized the posterior malleolus and the lateral malleolus with a posterior incision and the medial malleolus was too small to warrant a second incision because in good position. 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 Hopefully the OR report gets on the chart yet as it is not on, I do not see it being dictated. Bg Louie DO
[2017-11-26] MEDS ORDERED: Morphine 2 mg/ml ISec IVP PRN (12:34)
--- NOTE | 2017-11-26 13:56 | CP.PCM.PN ---
<Ana Beasley - Last Filed: 11/26/17 13:52> Subjective - Date & Time of Evaluation Date of Evaluation: 11/26/17 Time of Evaluation: 13:52 - Subjective Subjective: Ana Beasley PGY [address] Clark Ms. Escobedo was seen at bedside this morning. She complained of some pain in her right foot, but stated that her current pain management regimen is adequate. She denied any numbness/tingling, shortness of breath, chest pain, abdominal pain, nausea, vomiting, or dysuria. Objective - Vital Signs/Intake and Output Vital Signs (last 24 hours): Temp Pulse Resp BP Pulse Ox 99.2 F 105 H 20 146/91 H 98 11/26/17 06:00 11/26/17 06:00 11/26/17 06:00 11/26/17 06:00 11/26/17 06:00 Intake and Output: 11/26/17 11/26/17 06:59 18:59 Intake Total 1020 Balance 1020 - Medications Medications: Current Medications Acetaminophen (Tylenol 325mg Tab) 650 mg PO Q6H PRN PRN Reason: Fever >100.4 F Last Admin: 11/25/17 11:16 Dose: 650 mg Docusate Sodium (Colace) 100 mg PO BID [facility] Last Admin: 11/26/17 09:56 Dose: 100 mg Enoxaparin Sodium (Lovenox) 30 mg SC DAILY [facility] PRN Reason: Protocol Last Admin: 11/26/17 09:56 Dose: 30 mg Sodium Chloride (Sodium Chloride 0.9%) 1,000 mls @ 80 mls/hr IV .[id number] [facility] Last Admin: 11/25/17 12:52 Dose: 80 mls/hr Ketorolac Tromethamine (Toradol) 15 mg IVP Q6H PRN PRN Reason: Pain, Mild (1-3) Last Admin: 11/26/17 13:28 Dose: 15 mg Morphine Sulfate (Morphine) 2 mg IVP Q4H PRN PRN Reason: Pain, severe (8-10) Oxycodone/Acetaminophen (Percocet 5/325 Mg Tab) 1 tab PO Q6H PRN PRN Reason: Pain, moderate (4-7) Stop: 11/29/17 12:35 Pantoprazole Sodium (Protonix Ec Tab) 40 mg PO 0600 [facility] Last Admin: 11/26/17 08:34 Dose: 40 mg - Labs Labs: 11/26/17 08:10 11/26/17 08:10 PT 11.6 SECONDS (9.4-12.5) 11/23/17 20:45 INR 1.02 11/23/17 20:45 APTT 29.6 Seconds (25.1-36.5) 11/23/17 20:45 - Constitutional Appears: Well, No Acute Distress - Head Exam Head Exam: ATRAUMATIC, NORMOCEPHALIC - Eye Exam Eye Exam: Normal appearance, PERRL Pupil Exam: NORMAL ACCOMODATION - ENT Exam ENT Exam: Mucous Membranes Moist - Neck Exam Neck Exam: Full ROM, Normal Inspection - Respiratory Exam Respiratory Exam: Clear to Ausculation Bilateral, NORMAL BREATHING PATTERN. absent: Rales, Rhonchi, Wheezes, Respiratory Distress - Cardiovascular Exam Cardiovascular Exam: REGULAR RHYTHM, +S1, +S2 - GI/Abdominal Exam GI & Abdominal Exam: Soft, Normal Bowel Sounds. absent: Distended, Firm, Tenderness - Extremities Exam Additional comments: Right foot cast clean, dry, and intact. Normal movement and capillary refill of b/l toes. - Neurological Exam Neurological Exam: Alert, Awake, Oriented x3 Additional comments: sensation intact in b/l toes - Psychiatric Exam Psychiatric exam: Normal Affect, Normal Mood - Skin Skin Exam: Normal Color Assessment and Plan - Assessment and Plan (Free Text) Assessment: 22 y/o F w/ no significant pmhx admitted for trimalleolar fracture s/p mechanical fall. Plan: R trimalleolar fracture - Xray Ankle: Trimalleolar fracture. Marked edema of the lateral ankle - POD #2: s/p ORIF, Dr. Louie. - minimal vac output this morning - Lovenox 30mg for DVT ppx, as per Dr. Louie - Ancef 2g/50mg dextrose completed 11/24 - Previous hx of cervical cerclage surgeries under anesthesia. Reported normal recovery post procedures - morphine 2mg q4h IVP prn for severe pain. Percocet 5/325 PO q6h prn for moderate pain. Toradol 15mg IVP q6h prn for mild pain. - heart healthy diet - Ortho consulted, recs appreciated Leukocytosis - resolved - pt afebrile - WBC 7.7 today from 12.3 - likely etiology: secondary to stress demargination DVT ppx/GI ppx: lovenox 30/ protonix Case discussed with and reviewed by Dr. Clark <Nabeel Clark - Last Filed: 11/26/17 16:53> Objective - Vital Signs/Intake and Output Vital Signs (last 24 hours): Temp Pulse Resp BP Pulse Ox 99.3 F 84 20 135/86 99 11/26/17 14:00 11/26/17 14:00 11/26/17 14:00 11/26/17 14:00 11/26/17 14:00 Intake and Output: 11/26/17 11/26/17 06:59 18:59 Intake Total 1020 Balance 1020 - Medications Medications: Current Medications Acetaminophen (Tylenol 325mg Tab) 650 mg PO Q6H PRN PRN Reason: Fever >100.4 F Last Admin: 11/25/17 11:16 Dose: 650 mg Docusate Sodium (Colace) 100 mg PO BID [facility] Last Admin: 11/26/17 09:56 Dose: 100 mg Enoxaparin Sodium (Lovenox) 40 mg SC DAILY [facility] PRN Reason: Protocol Sodium Chloride (Sodium Chloride 0.9%) 1,000 mls @ 80 mls/hr IV .[id number] [facility] Last Admin: 11/25/17 12:52 Dose: 80 mls/hr Ketorolac Tromethamine (Toradol) 15 mg IVP Q6H PRN PRN Reason: Pain, Mild (1-3) Last Admin: 11/26/17 13:28 Dose: 15 mg Morphine Sulfate (Morphine) 2 mg IVP Q4H PRN PRN Reason: Pain, severe (8-10) Oxycodone/Acetaminophen (Percocet 5/325 Mg Tab) 1 tab PO Q6H PRN PRN Reason: Pain, moderate (4-7) Stop: 11/29/17 12:35 Pantoprazole Sodium (Protonix Ec Tab) 40 mg PO 0600 [facility] Last Admin: 11/26/17 08:34 Dose: 40 mg - Labs Labs: 11/26/17 08:10 11/26/17 08:10 PT 11.6 SECONDS (9.4-12.5) 11/23/17 20:45 INR 1.02 11/23/17 20:45 APTT 29.6 Seconds (25.1-36.5) 11/23/17 20:45 Attending/Attestation - Attestation I have personally seen and examined this patient.: Yes I have fully participated in the care of the patient.: Yes I have reviewed all pertinent clinical information, including history, physical exam and plan: Yes Notes (Text): 11/26/17 16:50 Attending note; Patient seen and examined with resident. Patient is a 22-year-old female with no significant past medical history that presented to the emergency room with right ankle pain after mechanical fall at home. 1. Right trimalleolar fracture status post mechanical fall. Status post ORIF, postop day #2.. Would VAC in place. No significant drainage in the wound VAC container . Status post treatment with Ancef. Capillary refill present. Swelling is improving. Pain control is adequate. Continue Percocet and morphine when necessary. Orthopedics evaluation appreciated. 2. Leukocytosis. Resolved. Likely reactive. Patient is afebrile and nontoxic. 3. Acute on chronic anemia; hemoglobin is stable . 4. DVT prophylaxis. Lovenox 40 mg subcutaneous daily. Physical therapy evaluation requested. Case was discussed in detail with the patient regarding current diagnosis and treatment plan. Upon discharge the patient will follow-up with [facility] [place] [facility].
[2017-11-26] MEDS ORDERED: Enoxaparin 40 mg Syringe SC SCH (16:49)
[2017-11-26] MEDS: Oxycodone/Acetaminophen 5/325 mg Tab PO PRN (18:15)
--- NOTE | 2017-11-26 18:34 | US ---
HISTORY: Leg pain and swelling. Evaluate for DVT PHYSICIAN(S): Prashanth Howell MD. TECHNIQUE: Duplex sonography and color-flow Doppler with graded compression were used to evaluate the deep venous systems of both lower extremities. There is a cast on the right lower extremity [id number] FINDINGS: The visualized deep venous systems of both lower extremities are sonographically normal and compressible. Normal wave forms and augmentation are seen. There is no sonographic evidence for deep venous thrombosis in the visualized segments of both lower extremities. IMPRESSION: No sonographic evidence for deep venous thrombosis in the visualized segments of both lower extremities. Limited study.
[2017-11-26] MEDS: Sodium Chloride 0.9% 1,000 ML IV SCH (19:16)
[2017-11-27] MEDS: Sodium Chloride 0.9% 1,000 ML IV SCH (04:34)
[2017-11-27] MEDS: Oxycodone/Acetaminophen 5/325 mg Tab PO PRN (05:12)
[2017-11-27] MEDS: Pantoprazole 40 mg EC Tab PO SCH (06:53)
[2017-11-27 09:07] LABS: BASO # 0.02 K/mm3 (0.0-2.0); BASO % 0.2 % (0.0-3.0); EOS # 0.1 (0.0-0.7); EOS % 1.1 % (1.5-5.0); GRAN # 6.1 (1.4-6.5); GRAN % 70.1 % (50.0-68.0); HEMOGLOBIN 9.5 g/dL (12.0-16.0); LYMPH # 1.9 (1.2-3.4); LYMPH % 21.6 % (22.0-35.0); MEAN CELL VOLUME 74.7 fl (80.0-105.0); MEAN CORPUSCULAR HEMOGLOBIN 24.5 pg (25.0-35.0); MEAN CORPUSCULAR HGB CONC 32.8 g/dl (31.0-37.0); MEAN PLATELET VOLUME 9.5 fl (7.0-11.0); MONO # 0.6 (0.1-0.6); RBC 3.88 10^6/uL (3.5-6.1); RED CELL DISTRIBUTION WIDTH 13.8 % (11.5-14.5); WHITE BLOOD COUNT 8.7 10^3/ul (4.5-11.0)
[2017-11-27 09:23] LABS: ALB/GLOB RATIO 1.1 (1.1-1.8); ALBUMIN 3.6 g/dL (3.0-4.8); ALT/SGPT 69 U/L (7-56); AST/SGOT 52 U/L (14-36); BLOOD UREA NITROGEN 9 mg/dL (7-21); CALCIUM 8.6 mg/dL (8.4-10.5); GFR AFRICAN-AMERICAN > 60; GFR NON-AFRICAN AMERICAN > 60
[2017-11-27 13:34] VITALS: BP 139/75; PULSE 88; RESP 20; TEMP 98.7; O2SAT 100
--- NOTE | 2017-11-27 15:01 | CP.PCM.DIS ---
<Ana Beasley - Last Filed: 11/27/17 14:57> Provider - Provider Date of Admission: 11/23/17 21:07 Attending physician: Nabeel Clark MD Consults: Orthopedic Surgery Time Spent in preparation of Discharge (in minutes): 70 Hospital Course - Lab Results Lab Results: Most Recent Lab Values WBC 8.7 10^3/ul (4.5-11.0) 11/27/17 08:30 RBC 3.88 10^6/uL (3.5-6.1) 11/27/17 08:30 Hgb 9.5 g/dL (12.0-16.0) L 11/27/17 08:30 Hct 29.0 % (36.0-48.0) L 11/27/17 08:30 MCV 74.7 fl (80.0-105.0) L 11/27/17 08:30 MCH 24.5 pg (25.0-35.0) L 11/27/17 08:30 MCHC 32.8 g/dl (31.0-37.0) 11/27/17 08:30 RDW 13.8 % (11.5-14.5) 11/27/17 08:30 Plt Count 287 10^3/uL (120.0-450.0) 11/27/17 08:30 MPV 9.5 fl (7.0-11.0) 11/27/17 08:30 Gran % 70.1 % (50.0-68.0) H 11/27/17 08:30 Lymph % (Auto) 21.6 % (22.0-35.0) L 11/27/17 08:30 [place] % (Auto) 7.0 % (1.0-6.0) H 11/27/17 08:30 Eos % (Auto) 1.1 % (1.5-5.0) L 11/27/17 08:30 Baso % (Auto) 0.2 % (0.0-3.0) 11/27/17 08:30 Gran # 6.10 (1.4-6.5) 11/27/17 08:30 Lymph # (Auto) 1.9 (1.2-3.4) 11/27/17 08:30 [place] # (Auto) 0.6 (0.1-0.6) 11/27/17 08:30 Eos # (Auto) 0.1 (0.0-0.7) 11/27/17 08:30 Baso # (Auto) 0.02 K/mm3 (0.0-2.0) 11/27/17 08:30 PT 11.6 SECONDS (9.4-12.5) 11/23/17 20:45 INR 1.02 11/23/17 20:45 APTT 29.6 Seconds (25.1-36.5) 11/23/17 20:45 Sodium 142 mmol/L (132-148) 11/27/17 08:30 Potassium 3.4 mmol/L (3.6-5.0) L 11/27/17 08:30 Chloride 106 mmol/L (98-107) 11/27/17 08:30 Carbon Dioxide 25 mmol/L (21-33) 11/27/17 08:30 Anion Gap 15 (10-20) 11/27/17 08:30 BUN 9 mg/dL (7-21) 11/27/17 08:30 Creatinine 0.6 mg/dl (0.7-1.2) L 11/27/17 08:30 Est GFR ( Amer) > 60 11/27/17 08:30 Est GFR (Non-Af Amer) > 60 11/27/17 08:30 Random Glucose 123 mg/dL (70-110) H 11/27/17 08:30 Calcium 8.6 mg/dL (8.4-10.5) 11/27/17 08:30 Magnesium 2.0 mg/dL (1.7-2.2) 11/24/17 07:00 Iron 20 ug/dL (45-180) L 11/26/17 Unknown TIBC 316 ug/dL (265-497) 11/26/17 Unknown % Saturation 6 % (20-55) L 11/26/17 Unknown Transferrin 231.43 mg/dL (206-381) 11/26/17 09:19 Ferritin 33.8 ng/mL 11/26/17 09:19 Total Bilirubin 0.6 mg/dL (0.2-1.3) 11/27/17 08:30 AST 52 U/L (14-36) H D 11/27/17 08:30 ALT 69 U/L (7-56) H 11/27/17 08:30 Alkaline Phosphatase 132 U/L (38-126) H 11/27/17 08:30 Total Protein 6.9 g/dL (5.8-8.3) 11/27/17 08:30 Albumin 3.6 g/dL (3.0-4.8) 11/27/17 08:30 Globulin 3.3 gm/dL 11/27/17 08:30 Albumin/Globulin Ratio 1.1 (1.1-1.8) 11/27/17 08:30 Urine Color Yellow (YELLOW) 11/24/17 08:00 Urine Appearance Sl cloudy (CLEAR) 11/24/17 08:00 Urine pH 6.0 (4.7-8.0) 11/24/17 08:00 Ur Specific [place] 1.025 (1.005-1.035) 11/24/17 08:00 Urine Protein Negative mg/dL (<30 mg/dL) 11/24/17 08:00 Urine Glucose (UA) Negative mg/dL (NEGATIVE) 11/24/17 08:00 Urine Ketones Negative mg/dL (NEGATIVE) 11/24/17 08:00 Urine Blood Negative (NEGATIVE) 11/24/17 08:00 Urine Nitrate Negative (NEGATIVE) 11/24/17 08:00 Urine Bilirubin Negative (NEGATIVE) 11/24/17 08:00 Urine Urobilinogen 0.2 E.U./dL (<1 E.U./dL) 11/24/17 08:00 Ur Leukocyte Esterase Moderate [place]/uL (NEGATIVE) H 11/24/17 08:00 Urine RBC Negative /hpf (0-2) 11/24/17 08:00 Urine WBC 25 - 30 /hpf (0-6) 11/24/17 08:00 Ur Epithelial Cells 3 - 4 /hpf (0-5) 11/24/17 08:00 Urine Bacteria Small (NEG) 11/24/17 08:00 Urine HCG, Qual Negative (NEGATIVE) 11/24/17 08:00 Blood Type B POSITIVE 11/23/17 21:00 Antibody Screen Negative 11/23/17 21:00 BBK History Checked Patient has bt 11/23/17 21:00 - Hospital Course Hospital Course: Ms. Escobedo is a 22 y/o F with no significant pmhx who presented to ED on with complaints of severe R ankle pain after falling at home. She denied LOC during the event. She denies numbness, tingling, or loss of sensation on the extremity. She was able to move her R ankle, although its very painful. In the ED, pt received pain control with toradol and tylenol. XR Right foot showed a trimalleolar fracture. Orthopedic surgery was consulted and performed an ORIF of the R foot on 11/24. A wound vac was placed, with minimal drainage. Patient was placed on Lovenox 30mg for DVT prophylaxis. Her pain was managed with morphine for severe pain, percocet for moderate pain, toradol 15mg for mild pain. Pt reported her pain was tolerable, and denied any numbness/tingling after the surgery. B/l Lower Extremity US was unremarkable. Wound vac was removed on 11/27, and orthopedic surgery recommended discharge for the patient with follow up at their clinic within 10 days. Patient was evaluated by physical therapy. She was given crutches and a prescription for a standard walker to be used at home. Instructions on newly prescribed medications were given to the patient. The patient was reminded to follow up with orthopedics upon discharge within 10 days. She comprehended the instructions. Discharge Exam - Head Exam Head Exam: ATRAUMATIC, NORMOCEPHALIC - Eye Exam Eye Exam: EOMI, PERRL Pupil Exam: NORMAL ACCOMODATION - ENT Exam ENT Exam: Mucous Membranes Moist - Respiratory Exam Respiratory Exam: Clear to PA & Lateral, NORMAL BREATHING PATTERN. absent: Rales, Wheezes, Respiratory Distress, Stridor - Cardiovascular Exam Cardiovascular Exam: REGULAR RHYTHM, +S1, +S2 - GI/Abdominal Exam GI & Abdominal Exam: Normal Bowel Sounds, Soft. absent: Distended, Firm, Tenderness - Extremities Exam Additional comments: right foot in casting, toes normal color, movement intact, normal capillary refill - Neurological Exam Neurological exam: Alert, Oriented x3 - Psychiatric Exam Psychiatric exam: Normal Affect, Normal Mood - Skin Skin Exam: Normal Color Discharge Plan - Discharge Medications Prescriptions: Aspirin [Aspirin EC] 325 mg PO DAILY 30 Days ect Ibuprofen [Motrin] 600 mg PO Q6H PRN 30 Days tab PRN Reason: Pain, Moderate (4-7) - Follow Up Plan Condition: STABLE Disposition: HOME/ ROUTINE Instructions: Ankle Fracture, How to Use Crutches, Preventing Falls, Going Up and Down Curbs or Stairs With a Walker or Crutches Additional Instructions: Please follow up with Dr. Louie within the next 10 days. Call [phone] for an appointment. Please take the newly prescribed medications upon discharge: Ibuprofen 600mg every 6 hours NEEDED for pain. Aspirin 325mg ONCE day for 2 weeks, and continue to take it after 2 weeks until you are mobile. Please keep your foot elevated when resting. Please return to the emergency department if symptoms return. Referrals: Bg Louie DO [Staff Provider] - <Nabeel Clark - Last Filed: 11/28/17 08:14> Provider - Provider Date of Admission: 11/23/17 21:07 Attending physician: Nabeel Clark MD Hospital Course - Lab Results Lab Results: Most Recent Lab Values WBC 8.7 10^3/ul (4.5-11.0) 11/27/17 08:30 RBC 3.88 10^6/uL (3.5-6.1) 11/27/17 08:30 Hgb 9.5 g/dL (12.0-16.0) L 11/27/17 08:30 Hct 29.0 % (36.0-48.0) L 11/27/17 08:30 MCV 74.7 fl (80.0-105.0) L 11/27/17 08:30 MCH 24.5 pg (25.0-35.0) L 11/27/17 08:30 MCHC 32.8 g/dl (31.0-37.0) 11/27/17 08:30 RDW 13.8 % (11.5-14.5) 11/27/17 08:30 Plt Count 287 10^3/uL (120.0-450.0) 11/27/17 08:30 MPV 9.5 fl (7.0-11.0) 11/27/17 08:30 Gran % 70.1 % (50.0-68.0) H 11/27/17 08:30 Lymph % (Auto) 21.6 % (22.0-35.0) L 11/27/17 08:30 [place] % (Auto) 7.0 % (1.0-6.0) H 11/27/17 08:30 Eos % (Auto) 1.1 % (1.5-5.0) L 11/27/17 08:30 Baso % (Auto) 0.2 % (0.0-3.0) 11/27/17 08:30 Gran # 6.10 (1.4-6.5) 11/27/17 08:30 Lymph # (Auto) 1.9 (1.2-3.4) 11/27/17 08:30 [place] # (Auto) 0.6 (0.1-0.6) 11/27/17 08:30 Eos # (Auto) 0.1 (0.0-0.7) 11/27/17 08:30 Baso # (Auto) 0.02 K/mm3 (0.0-2.0) 11/27/17 08:30 PT 11.6 SECONDS (9.4-12.5) 11/23/17 20:45 INR 1.02 11/23/17 20:45 APTT 29.6 Seconds (25.1-36.5) 11/23/17 20:45 Sodium 142 mmol/L (132-148) 11/27/17 08:30 Potassium 3.4 mmol/L (3.6-5.0) L 11/27/17 08:30 Chloride 106 mmol/L (98-107) 11/27/17 08:30 Carbon Dioxide 25 mmol/L (21-33) 11/27/17 08:30 Anion Gap 15 (10-20) 11/27/17 08:30 BUN 9 mg/dL (7-21) 11/27/17 08:30 Creatinine 0.6 mg/dl (0.7-1.2) L 11/27/17 08:30 Est GFR ( Amer) > 60 11/27/17 08:30 Est GFR (Non-Af Amer) > 60 11/27/17 08:30 Random Glucose 123 mg/dL (70-110) H 11/27/17 08:30 Calcium 8.6 mg/dL (8.4-10.5) 11/27/17 08:30 Magnesium 2.0 mg/dL (1.7-2.2) 11/24/17 07:00 Iron 20 ug/dL (45-180) L 11/26/17 Unknown TIBC 316 ug/dL (265-497) 11/26/17 Unknown % Saturation 6 % (20-55) L 11/26/17 Unknown Transferrin 231.43 mg/dL (206-381) 11/26/17 09:19 Ferritin 33.8 ng/mL 11/26/17 09:19 Total Bilirubin 0.6 mg/dL (0.2-1.3) 11/27/17 08:30 AST 52 U/L (14-36) H D 11/27/17 08:30 ALT 69 U/L (7-56) H 11/27/17 08:30 Alkaline Phosphatase 132 U/L (38-126) H 11/27/17 08:30 Total Protein 6.9 g/dL (5.8-8.3) 11/27/17 08:30 Albumin 3.6 g/dL (3.0-4.8) 11/27/17 08:30 Globulin 3.3 gm/dL 11/27/17 08:30 Albumin/Globulin Ratio 1.1 (1.1-1.8) 11/27/17 08:30 Urine Color Yellow (YELLOW) 11/24/17 08:00 Urine Appearance Sl cloudy (CLEAR) 11/24/17 08:00 Urine pH 6.0 (4.7-8.0) 11/24/17 08:00 Ur Specific [place] 1.025 (1.005-1.035) 11/24/17 08:00 Urine Protein Negative mg/dL (<30 mg/dL) 11/24/17 08:00 Urine Glucose (UA) Negative mg/dL (NEGATIVE) 11/24/17 08:00 Urine Ketones Negative mg/dL (NEGATIVE) 11/24/17 08:00 Urine Blood Negative (NEGATIVE) 11/24/17 08:00 Urine Nitrate Negative (NEGATIVE) 11/24/17 08:00 Urine Bilirubin Negative (NEGATIVE) 11/24/17 08:00 Urine Urobilinogen 0.2 E.U./dL (<1 E.U./dL) 11/24/17 08:00 Ur Leukocyte Esterase Moderate [place]/uL (NEGATIVE) H 11/24/17 08:00 Urine RBC Negative /hpf (0-2) 11/24/17 08:00 Urine WBC 25 - 30 /hpf (0-6) 11/24/17 08:00 Ur Epithelial Cells 3 - 4 /hpf (0-5) 11/24/17 08:00 Urine Bacteria Small (NEG) 11/24/17 08:00 Urine HCG, Qual Negative (NEGATIVE) 11/24/17 08:00 Blood Type B POSITIVE 11/23/17 21:00 Antibody Screen Negative 11/23/17 21:00 BBK History Checked Patient has bt 11/23/17 21:00 Attending/Attestation - Attestation I have personally seen and examined this patient.: Yes I have fully participated in the care of the patient.: Yes I have reviewed all pertinent clinical information, including history, physical exam and plan: Yes Notes (Text): 11/28/17 08:11 Attending note; Patient seen and examined with resident. Patient is a 22-year-old female with no significant past medical history that presented to the emergency room with right ankle pain after mechanical fall at home. 1. Right trimalleolar fracture status post mechanical fall. Status post ORIF, postop day #3. Would VAC removed by orthopedics. Pain is improving. Cleared by orthopedics for discharge with close outpatient follow-up. Continue Percocet when necessary. Physical therapy evaluation appreciated. Prescription for walker given. Continue aspirin for DVT prophylaxis. Physical therapy evaluation appreciated. Case was discussed in detail with the patient regarding current diagnosis and treatment plan. Upon discharge the patient will follow-up with [facility] clinic. Follow-up with orthopedics Dr. Louie in 10 days. 11/28/17 08:13
--- NOTE | 2017-11-28 07:49 | PROCN ---
surgery was done Copied To: Bg Louie DO Attending MD: Bg Louie DO DATE: 11/28/2017 A 22-year-old female in room 574, bed 2 with the fracture dislocation of her right ankle occurred on 11/22/2017, had ORIF on 11/23/2017. She had a large posterior malleolar fragment, highly-comminuted lateral malleolar fragment, surg was done through the posterolateral approach and medial malleolar fracture was in good position so we just accepted the cast to hold that in place. She had a VAC machine put on it, surgery at 11/23/2017 and today 11/27/2017, wound is dry. No signs of infection, today's date is 11/27/2017 and we will put on a new dressing, new splint, well padded. She has some numbness to the lateral side of her foot probably from the sural nerve irritation and we will send her home with crutches, nonweightbearing. She will return in 10 days to 2 weeks to take the sutures out and put her in a circular cast. She is not to put weight on it and we will start therapy when the cast is off. We will put her into a little more dorsiflexion today. FINAL DIAGNOSES: Severe unsatble intrarticuler fracture of the right ankle with large posterior malleolar fragment comminuted with lateral malleolar fragment and a stable medial malleolar fracture. We will sent her home with crutches, nonweightbearing, with strict elevation, paresthesias should come back over a period of week because of the sural nerve irritation from the difficult reduction of the posterior malleolus and the lateral malleolus. Otherwise, the patient is doing well and we will see her in 10 days to 2 weeks. I would avoid using heavy narcotics like Percocet or Dilaudid. The patient is not to do any smoking, she does smoke. Bg Louie DO DORON
== END 2017-11-27 18:50 | disposition home or self-care (01) | DRG 493 ==
LOC: ED 19:36 → ERH 21:07 → 5RSO 22:26
PROVIDERS: ADMIT Hospitalist; ATTEND Internal Medicine
PROC: 0QSG04Z Reposition Right Tibia with Internal Fixation Device, Open Approach (ICD-10-PCS; 2017-11-24)
PROC: 0QSJ04Z Reposition Right Fibula with Internal Fixation Device, Open Approach (ICD-10-PCS; principal; 2017-11-24 09:30)
DX: S82.851A Displaced trimalleolar fracture of right lower leg, initial encounter for closed fracture (principal); D62 Acute posthemorrhagic anemia; W01.0XXA Fall on same level from slipping, tripping and stumbling without subsequent striking against object, initial encounter; Y92.009 Unspecified place in unspecified non-institutional (private) residence as the place of occurrence of the external cause; D53.9 Nutritional anemia, unspecified; D72.829 Elevated white blood cell count, unspecified; Z87.891 Personal history of nicotine dependence